=== PATIENT | female | born 1990 | race Caucasian/White ===

== ENCOUNTER 2018-06-14 21:01 | Observation (INO) | payer OTHER ==
[~2018-06-14] VITALS: Ht 160 cm; Wt 55.0 kg
[~2018-06-14 21:01] MED LIST: ALPR0.5T6 PO; AMOX875T PO; METH10SO HOMEMEDPO; OXYC-302 PO; PREN1TAB27 PO
[2018-06-14] MEDS ORDERED: SERT50TA PO (21:16)
[2018-06-14] MEDS ORDERED: PROP40TA PO (21:16)
[2018-06-14] MEDS ORDERED: FENTANYL PF 100 MCG/2ML ONE ×2 (21:25→23:12)
[2018-06-14] MEDS: FENTANYL PF 100 MCG/2ML IVPush PRN ×2 (21:26→23:15)
[2018-06-14 21:33] LABS: CULTURE INDICATED? NO; MICROSCOPIC NOT IND
[2018-06-14 22:17] LABS: BASOPHILS # (AUTO) 0.05 x10^3/uL (0-0.1); BASOPHILS % (AUTO) 1 % (0-1); EOSINOPHILS # (AUTO) 0.01 x10^3/uL (0-0.4); EOSINOPHILS % (AUTO) 0 % (1-7); LYMPHOCYTES # (AUTO) 1.18 x10^3/uL (1-3.4); LYMPHOCYTES % (AUTO) 13 % (22-44); MD NO; MEAN CORPUSCULAR HEMOGLOBIN 32.5 pg (27.0-34.8); MEAN CORPUSCULAR VOLUME 92.9 fL (80-100); MEAN PLATELET VOLUME 9.7 fL (7.4-10.4); MONOCYTES # (AUTO) 0.33 x10^3/uL (0.2-0.8); MONOCYTES % (AUTO) 4 % (2-9); NEUTROPHILS # (AUTO) 7.71 x10^3/uL (1.8-6.8); NEUTROPHILS % (AUTO) 83 % (42-75); PLATELET COUNT 191 x10^3/uL (130-400); RED BLOOD COUNT 3.42 x10^6/uL (3.82-5.3); RED CELL DISTRIBUTION WIDTH 12.8 % (9.6-15.2)
[2018-06-15] MEDS ORDERED: SODIUM CHLORIDE 0.9% 1,000 ML IV ONE
[2018-06-15] MEDS ORDERED: CLINDAMYCIN 150 MG/ML, 6ML ONE (00:54)
[2018-06-15] MEDS ORDERED: MIDAZOLAM 1 MG/ML, 2ML ONE (00:55)
[2018-06-15] MEDS ORDERED: FENTANYL PF 100 MCG/2ML ONE (00:55)
[2018-06-15] MEDS ORDERED: BUPIVACAINE/PF 0.5% ONE (00:56)
[2018-06-15] MEDS ORDERED: EPINEPHRINE 1 MG/ML, 1ML ONE (00:56)
[2018-06-15] MEDS ORDERED: LIDOCAINE JELLY 2%, 30GM ONE (00:57)
[2018-06-15] MEDS ORDERED: KETOROLAC 30 MG/1 ML ONE (00:59)
[2018-06-15] MEDS ORDERED: PROMETHAZINE 25 MG SUPP PR PRN (01:30)
[2018-06-15] MEDS ORDERED: EPHEDRINE 50 MG/ML, 1ML IM PRN (01:30)
[2018-06-15] MEDS ORDERED: ALBUTEROL/IPRATROPIUM 2.5MG/0.5MG, 3 ML NPPB PRN (01:30)
[2018-06-15] MEDS ORDERED: hydrALAzine 20 MG/ML, 1ML IV PRN (01:30)
[2018-06-15] MEDS ORDERED: FENTANYL PF 100 MCG/2ML IV PRN (01:30)
[2018-06-15] MEDS ORDERED: SCOPOLAMINE PATCH, 1.5MG PATCH.TD72 TD PRN (01:30)
[2018-06-15] MEDS ORDERED: ONDANSETRON 2MG/ML, 2ML IV PRN (01:30)
[2018-06-15] MEDS ORDERED: MIDAZOLAM 1 MG/ML, 2ML IV PRN (01:30)
[2018-06-15] MEDS ORDERED: DIAZEPAM 5 MG/ML, 2ML IVPush PRN (01:30)
[2018-06-15] MEDS ORDERED: HYDROmorphone 1 MG/ML, 1ML IV PRN (01:30)
[2018-06-15] MEDS ORDERED: LABETALOL 5MG/ML, 20ML IV PRN (01:30)
[2018-06-15] MEDS ORDERED: OXYcodone 5 MG/5 ML ORAL.SOL UDC PO PRN (01:30)
[2018-06-15] MEDS ORDERED: ACETAMINOPHEN 325 MG TABLET PO PRN (01:30)
[2018-06-15] MEDS ORDERED: SUGAMMADEX 200 MG/2 ML IVPush ONE ×2 (01:31→01:32)
[2018-06-15] MEDS ORDERED: ROCURONIUM 10MG/ML,5ML ONE (01:32)
[2018-06-15] MEDS ORDERED: ONDANSETRON 2MG/ML, 2ML ONE (01:32)
[2018-06-15] MEDS ORDERED: DEXAMETHASONE 4 MG/ML, 1ML ONE (01:32)
[2018-06-15] MEDS ORDERED: SUCCINYLCHOLINE 20 MG/ML, 10ML ONE (01:32)
[2018-06-15] MEDS ORDERED: PROPOFOL 10 MG/ML, 20ML ONE (01:32)
[2018-06-15] MEDS ORDERED: MEPERIDINE/PF 50 MG/ML ONE (01:53)
[2018-06-15] MEDS ORDERED: OXYcodone 5 MG/5 ML ORAL.SOL UDC ONE (01:53)
[2018-06-15] MEDS: MEPERIDINE/PF 25MG/0.5ML IVPush PRN ×2 (01:55→02:05)
[2018-06-15] MEDS ORDERED: DIPHENHYDRAMINE 50 MG/ML, 1ML ONE (02:19)
[2018-06-15] MEDS ORDERED: DIPHENHYDRAMINE 50 MG/ML, 1ML IVPush ONE (02:30)
[2018-06-15] MEDS ORDERED: OXYC-302 PO (03:24)
[2018-06-15] MEDS ORDERED: SULF1TAB24 PO (03:26)
[2018-06-15] MEDS ORDERED: ONDANSETRON 2MG/ML, 2ML IVPush ONE (03:30)
[2018-06-15] MEDS ORDERED: OXYcodone/APAP 5/325MG TABLET PO PRN (03:30)
[2018-06-15] MEDS ORDERED: LACTATED RINGERS 1,000 ML IV SCH (03:30)
[2018-06-15 06:44] VITALS: BP 124/88
[2018-06-15] MEDS ORDERED: SULFAMETH./TRIMETHOPRIM DS 800MG/160MG TABLET PO SCH (09:00)
== END 2018-06-15 07:44 | disposition home or self-care (01) ==
LOC: ED 23:40 → INTOOBSV 23:59 → EDIP 23:59 → 4NOR 06-15 03:03
PROVIDERS: ADMIT Obstetrics & Gynecology; ATTEND Obstetrics & Gynecology
DX: K66.1 Hemoperitoneum (principal); N83.12 Corpus luteum cyst of left ovary; F90.9 Attention-deficit hyperactivity disorder, unspecified type; F41.1 Generalized anxiety disorder; Z86.14 Personal history of Methicillin resistant Staphylococcus aureus infection
CPT/HCPCS: 36415; 58662; 76830; 81003; 85025; 96374; 96376; 99285; G0378; J0171; J0330; J1100; J1200; J1885; J2175; J2250; J2405; J2704; J3010; J3490; S0077; 96375